=== PATIENT | female | born 1955 | race Caucasian/White ===

== ENCOUNTER 2023-08-23 16:26 | Emergency (ER) | payer MEDICARE, OTHER, SELFPAY ==
[2023-08-23 16:34] VITALS: BP 144/75; PULSE 83; RESP 20; TEMP 37; O2SAT 98; BMI 23.3
--- NOTE | 2023-08-23 16:56 | DI.RAD.S_ITS ---
PROCEDURE: XR SHOULDER RT MIN 2V INDICATIONS: fall with shoulder pain TECHNIQUE: 3 views of the shoulder were acquired. COMPARISON: None. FINDINGS: Bones: No acute fractures or dislocations. No suspicious bony lesions. Visualized ribs appear intact. Mild acromioclavicular joint osteoarthrosis. Soft tissues: No suspicious soft tissue calcifications. IMPRESSION: No acute osseous abnormality. If symptoms persist or if there is continued clinical concern, cross-sectional imaging such as MRI or CT may be helpful for further evaluation. Approved by: Zi Felix M.D. on 08/23/2023 at 17:34
--- NOTE | 2023-08-23 17:17 | PC.NURSE ---
Patient refused any and all CT scans until the Provider sees the patient first due to denial of headache, nausea, vomiting, dizzyness. Provider notified at 1700.
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
[2023-08-23] MEDS: OXYCODONE/APAP 5/325 PREPACK 1 BOTTLE MISC (19:10)
[2023-08-23] MEDS: BACITRACIN OINT 0.9 GM PCKT 1 APPLIC TOP (19:10)
[2023-08-23] MEDS: OXYCODONE/ACETAMINOPHEN 5/325 TABLET 1 TAB PO (19:10)
[2023-08-23 19:39] VITALS: BP 120/65; PULSE 86; RESP 14; O2SAT 96
== END 2023-08-23 19:40 | disposition home or self-care (01) ==
PROVIDERS: Emergency Provider Emergency Medicine
DX: S01.111A Laceration without foreign body of right eyelid and periocular area, initial encounter (principal); S80.211A Abrasion, right knee, initial encounter; S60.415A Abrasion of left ring finger, initial encounter; V28.01XA Electric (assisted) bicycle driver injured in noncollision transport accident in nontraffic accident, initial encounter
CPT/HCPCS: 73030; 81003; 99283; 99284

== ENCOUNTER 2024-08-14 10:45 | Day surgery (SDC) | payer MEDICARE, OTHER, SELFPAY ==
[2024-08-08 10:14] VITALS: BMI 24.3
[2024-08-14] VITALS (8 sets, daily range): BP systolic 110–152; BP diastolic 66–85; PULSE 66–95; RESP 12–22; TEMP 36.3–37.3; O2SAT 96–99; BMI 23.2
--- NOTE | 2024-08-14 | PATH_ITS ---
[facility] Accession Number: [id number] No. of containers..02 Tissue . 01 Material submitted: . PART A: cervix - CERVICAL BX PART B: endometrium - ENDOMETRIAL CURRETTINGS . 01 Diagnosis: A. 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 Please see comment. . B. ENDOMETRIAL CURETTINGS: High-grade carcinoma morphologically similar to the tumor sampled in part A. Please see comment. MRV 08/20/2024 1258 Local . 01 Comment: Recommend correlation with imaging to determine site of origin. . Parts of this case were also reviewed by Drs. Cornell Alvarez (Julie) and Louis Newsome, who agree with the interpretation. . Dr. Vinita Rueda discussed results with Dr. Salgado on 08-20-24 at approximately 11:02 a.m. . 01 Electronically signed: . Vinita Rueda MD, Pathologist NPI- [id number] . 01 Gross description: . A. Received in formalin with two identifiers and cervical biopsy, are multiple pale cheek, soft, friable fragments of cervix aggregating to 3.9 x 3.5 x 1.2 cm. Two fragments have presumed violaceous, rough and irregular ectocervix and presumed stromal margins. These fragments are differentially inked and serially sectioned. The specimen is submitted entirely in A1-A4. B. Received in formalin with two identifiers and endometrial curettings, are multiple fragments of cheek soft tissue admixed with mucohemorrhagic material aggregating to 2.4 x 2.3 x 0.3 cm. Filtered and submitted entirely in B1. ([id number]) /MRV 08/15/2024 1751 Local . 01 Microscopic: . . RESULTS: Block A3 CK7: Positive. CK20: Scattered positive. Chromogranin: Positive. Synaptophysin: Positive. Beta catenin: Positive. SATB2: Positive. Villin: Positive. CDX2: Few positive. P16: Positive. PAX-8: Negative. ER: Negative. AL: Negative. WT1: Negative. CD10: Negative. P40: Negative. GATA3: Negative. . The lesional cells are positive for CK7, chromogranin, synaptophysin, p16, SATB2, villin, and beta catenin with few cells positive for CK20 and cdx2. The lesional cells are negative for PAX-8, ER, AL, WT1, CD10, p40, and GATA3. Although still considered, Mullerian and urothelial origin are not favored (PAX-8, p40, and SHON-3 negative). The differential diagnosis includes an epithelial tumor with neuroendocrine differentiation of pulmonary or enteric origin. Correlation with imaging studies recommended to determine site of origin. . Part B. Block B1 JACOB: Positive, consistent with epithelial neoplasm. P16: Positive. . Morphologic features are similar to the tumor sampled in Part A. . * This test was developed and the performance characteristics were validated by [employer]. It has not been cleared or approved by the U.S. Food and Drug Administration. . 01 Pathologist provided ICD-10: N95.0, C7A.8 . 01 CPT . 760933, 307842, U00404, Q20626 Specimen Comment: A courtesy copy of this report has been sent to [phone] Performed at: [address] [address], [place], [place] [id number] MD Allan Urbina MD Phone: [phone]
--- NOTE | 2024-08-14 11:11 | PM.PREOP ---
Pre-operative Note Interval Note History & Physical reviewed/Exam performed by Physician: Yes Changes to H&P: Yes H&P completed within 30 days and has changed as indicated here:: ASCUS pap cannot rule out high risk HPV, -HPV
[2024-08-14] MEDS: LACTATED RINGERS 1,000 ML 42 ML IV (11:30)
--- NOTE | 2024-08-14 11:51 | SUR.OPER ---
Lithotomy on padded OR bed, head on pillow, arms secured on padded arm boards at <90 degrees abduction. Legs secured in padded yellow fins stirrups.
[2024-08-14] MEDS: FERRIC SUBSULFATE 8 ML SOLUTION TOP (11:59)
--- NOTE | 2024-08-14 12:02 | PM.OP.1 ---
Operative Date/Time/Diagnoses Date of procedure: 08/14/24 Time of procedure: 12:03 Pre-op diagnosis: Postmenopausal bleeding, cervical polyp, fluid in endometrial canal Post-op diagnosis: same Procedure & Clinicians Procedure: Removal of fungating tissue from the cervix, due to the friability unable to proceed with hysteroscopy safely Same procedure as scheduled: No (Friability of the cervix with fungating tissue, unable to safely dilate cer) Indications: Postmenopausal bleeding, mass of cervix, fluid in the endometrial canal Surgeon: Merari Salgado Click Yes if Unassisted: Yes Anesthesia Type: General Operative Notes Findings: Fungating tissue from the cervix involving the majority of the cervix. Closure Type: not applicable Specimen(s): other (Cervical biopsies and possible endometrial biopsy) Estimated Blood Loss (mL): 5 Blood products transfused: none Procedure in detail: The patient was brought to the operating room where she underwent general anesthesia. She was placed in low stirrups She was prepped and draped in usual sterile fashion with pulsatile stockings in place and functional, warming in place. Her bladder was drained with in and out catheter. A single-tooth tenaculum was placed on the right anterior portion of the cervix that could be visualized. Tissue was removed with ring forceps followed by a loop cautery set at 30 w of cutting. Attempt to dilate the cervical os was difficult due to the friability of the tissue there. Decision was made that it would be unsafe to try to continue with dilation to allow hysteroscopy. Scraping was taken as far as the dilation but unclear if was in the endometrial canal or not. Tissue was sent to pathology. The cervix was treated with Monsel's to control bleeding. Patient went to recovery room in stable condition. Complications: none Post-operative Condition: stable Disposition: same day surgery Plan for aftercare: Treatment and follow-up based on biopsy results.
[2024-08-14] MEDS: OXYCODONE IR 5 MG TABLET PO ×2 (12:18→12:48)
[2024-08-14] MEDS: ONDANSETRON 4 MG/2 ML INJ IV (12:18)
[2024-08-14] MEDS: hydrOXYzine 50 MG/ML INJ 25 MG IM (12:18)
[2024-08-14] MEDS: ACETAMINOPHEN IV 1,000 MG/100 ML VIAL 400 MG IV (12:25)
[2024-08-14] MEDS: HYDROMORPHONE 1 MG INJ IV (13:07)
== END 2024-08-14 14:45 | disposition home or self-care (01) ==
PROVIDERS: PCP Family Medicine; Referring Provider Specialist; Visit Provider Specialist
PROC: 0UDB8ZZ Extraction of Endometrium, Via Natural or Artificial Opening Endoscopic (ICD-10-PCS; CPT 58558; principal; 2024-08-14 11:45)
DX: C7A.8 Other malignant neuroendocrine tumors (principal)
CPT/HCPCS: 57500; A9270; J0131; J1100; J1171; J2405; J2704; J3010; J3410